=== PATIENT | female | born 1975 | race Asian ===

== ENCOUNTER 2018-10-19 07:01 | Emergency (ER) | payer BC | END 2018-10-19 07:38 | disposition home or self-care (01) | LOC: E/R 07:01 | DX: J40 Bronchitis, not specified as acute or chronic (principal) | CPT/HCPCS: 99283 ==

== ENCOUNTER 2019-02-15 09:26 | Emergency (ER) | payer BC ==
[2019-02-15] MEDS: KETOROLAC 30 MG INJ IM (10:06)
[2019-02-15] MEDS: DIAZEPAM 2 MG TAB PO (10:10)
== END 2019-02-15 10:45 | disposition home or self-care (01) ==
LOC: FTE 09:26
DX: M54.2 Cervicalgia (principal); J45.909 Unspecified asthma, uncomplicated
CPT/HCPCS: 81025; 96372; 99284-25